=== PATIENT | female | born 1995 | race Two or more races ===

== ENCOUNTER 2018-01-02 16:50 | Emergency (ER) | payer OTHER ==
[2018-01-02 17:23] LABS: BASOPHILS % (AUTO) 0.8 %; EOSINOPHILS # (AUTO) 0.1 10^3/uL (0.0-0.7); HGB - HEMOGLOBIN 14.3 g/dL (12.0-16.0); LYMPHOCYTES # (AUTO) 1.8 10^3/uL (1.5-3.5); LYMPHOCYTES % (AUTO) 32.5 %; MEAN CORPUSCULAR HEMOGLOBIN 32.9 pg (27.0-31.0); MEAN CORPUSCULAR HGB CONC 34.2 g/dL (32.0-36.0); MEAN CORPUSCULAR VOLUME 96.1 fL (81.0-99.0); MEAN PLATELET VOLUME 7.4 fL (7.9-10.8); MONOCYTES # (AUTO) 0.5 10^3/uL (0.0-1.0); MONOCYTES % (AUTO) 9.5 %; NEUTROPHILS % (AUTO) 55.2 %; PLT - PLATELET COUNT 263 10^3/uL (130-450); RED BLOOD COUNT 4.36 10^6/uL (4.20-5.40); RED CELL DISTRIBUTION WIDTH 12.6 % (12.0-15.0); WHITE BLOOD COUNT 5.5 x10^3/uL (4.8-10.8)
[2018-01-02 17:35] LABS: ALBUMIN/GLOBULIN RATIO 1.1 (1.0-2.2); BILIRUBIN,TOTAL 0.5 mg/dL (0.2-1.0); CREATININE 0.6 mg/dL (0.4-1.0); TOTAL PROTEIN 7.5 g/dL (6.7-8.2)
--- NOTE | 2018-01-02 17:42 | ED Physician Documentation ---
PD HPI FEMALE - Stated complaint Stated Complaint: AB CRAMPING/6-8 WKS PREG - Chief complaint Chief Complaint: Abd Pain - History obtained from History obtained from: Patient - History of Present Illness Timing - onset: How many weeks ago (1) Timing - duration: Weeks (1) Timing - details: Gradual onset Pain level max: 3 Pain level max: 2 Associated symptoms: Pelvic pain (cramping), Vaginal bleeding (blood on toilet paper when wiping after urination). No: Fever, Chest/shoulder pain, Abdominal pain, Back pain, Vaginal pain Contributing factors: [employer] History: G (2), P (0), Termination(s) (1) Similar symptoms before: Has not had sx before Recently seen: Not recently seen Review of Systems Constitutional: denies: Fever, Chills Ears: denies: Ear pain Nose: denies: Rhinorrhea / runny nose, Congestion Throat: denies: Sore throat Cardiac: denies: Chest pain / pressure Respiratory: denies: Cough, Wheezing GI: denies: Vomiting, Diarrhea, Hematemesis, Bloody / black stool : denies: Dysuria Skin: denies: Rash Musculoskeletal: denies: Neck pain, Back pain PD PAST MEDICAL HISTORY - Past Surgical History Past Surgical History: No - Present Medications Home Medications: Ambulatory Orders Medication Instructions Recorded Confirmed Pnv No.122/Iron/Folic Acid 01/02/18 [ Multi Tablet] - Allergies Allergies/Adverse Reactions: Allergies Allergy/AdvReac Type Severity Reaction Status Date / Time No Known Drug Allergies Allergy Verified 01/02/18 16:58 - Social History Does the pt smoke?: No Smoking Status: Never smoker Does the pt drink ETOH?: No Does the pt have substance abuse?: No - Immunizations Immunizations are current?: Yes - POLST Patient has POLST: Yes PD ED PE NORMAL - Vitals Vital signs reviewed: Yes - General General: Alert and oriented X 3, No acute distress - HEENT HEENT: Moist mucous membranes - Neck Neck: Supple, no meningeal sign - Cardiac Cardiac: RRR, Strong equal pulses - Respiratory Respiratory: No respiratory distress, Clear bilaterally - Abdomen Abdomen: Soft, Non tender, Non distended - Female Female : Pt declined - Back Back: No CVA TTP, No spinal TTP - Derm Derm: Warm and dry, No rash - Extremities Extremities: No edema, No calf tenderness / cord - Neuro Neuro: Alert and oriented X 3 - Psych Psych: Normal mood, Normal affect Results - Vitals Vitals: Vital Signs - 24 hr 01/02/18 01/02/18 16:54 20:57 Temperature 37.2 C Heart Rate 57 L 72 Respiratory 16 15 Rate Blood Pressure 123/74 127/71 O2 Saturation 100 98 Oxygen O2 Source Room air - Labs Labs: Laboratory Tests 01/02/18 01/02/18 01/02/18 17:10 17:10 17:10 WBC 5.5 RBC 4.36 Hgb 14.3 Hct 41.9 MCV 96.1 MCH 32.9 H MCHC 34.2 RDW 12.6 Plt Count 263 MPV 7.4 L Neut # (Auto) 3.0 Lymph # (Auto) 1.8 G[place]rie # (Auto) 0.5 Eos # (Auto) 0.1 Baso # (Auto) 0.0 Absolute Nucleated RBC 0.00 Nucleated RBC % 0.0 Sodium 134 L Potassium 3.7 Chloride 104 Carbon Dioxide 25 Anion Gap 5.0 L BUN 11 Creatinine 0.6 Estimated GFR (MDRD) 126 Glucose 90 Calcium 9.0 Total Bilirubin 0.5 AST 18 ALT 16 Alkaline Phosphatase 51 Total Protein 7.5 Albumin 4.0 Globulin 3.5 Albumin/Globulin Ratio 1.1 Lipase 23 HCG, Quant Urine Color Urine Clarity Urine pH Ur Specific [place] Urine Protein Urine Glucose (UA) Urine Ketones Urine Occult Blood Urine Nitrite Urine Bilirubin Urine Urobilinogen Ur Leukocyte Esterase Urine RBC Urine WBC Ur Squamous Epith Cells Urine Bacteria Ur Microscopic Review Urine Culture Comments Blood Type O POSITIVE 01/02/18 01/02/18 17:10 20:32 WBC RBC Hgb Hct MCV MCH MCHC RDW Plt Count MPV Neut # (Auto) Lymph # (Auto) [place]rie # (Auto) Eos # (Auto) Baso # (Auto) Absolute Nucleated RBC Nucleated RBC % Sodium Potassium Chloride Carbon Dioxide Anion Gap BUN Creatinine Estimated GFR (MDRD) Glucose Calcium Total Bilirubin AST ALT Alkaline Phosphatase Total Protein Albumin Globulin Albumin/Globulin Ratio Lipase HCG, Quant 1604.00 Urine Color YELLOW Urine Clarity HAZY Urine pH 6.0 Ur Specific [place] <=1.005 Urine Protein NEGATIVE Urine Glucose (UA) NEGATIVE Urine Ketones NEGATIVE Urine Occult Blood SMALL H Urine Nitrite NEGATIVE Urine Bilirubin NEGATIVE Urine Urobilinogen 0.2 (NORMAL) Ur Leukocyte Esterase NEGATIVE Urine RBC 6-10 H Urine WBC 0-3 Ur Squamous Epith Cells FEW Squamous Urine Bacteria Rare Ur Microscopic Review INDICATED Urine Culture Comments NOT INDICATED Blood Type - Rads (name of study) pelvic US Radiology: Prelim report reviewed, EMP read contemporaneously, See rad report ( Single intrauterine gestational sac at EGA 4 weeks 2 days based on mean sac diameter, which is discordant with clinical dates, with no pole, yolk sac , or heart beat noted. No other ultrasound abnormalities. ) PD MEDICAL DECISION MAKING - ED course Complexity details: reviewed results, re-evaluated patient, considered differential, d/w patient ED course: Patient is a 22-year-old female who presents to the emergency department with a threatened miscarriage. Appears to have a single intrauterine gestational sac estimated gestational age of 4 weeks and 2 days based on sac diameter on ultrasound. Discordant with clinical dates, but her hCG is only 1600. We will have her follow-up with her doctor for repeat hCG. Abdomen is soft, nontender nondistended. No evidence of ectopic at this time. Ectopic precautions given at bedside. Patient counseled regarding signs and symptoms for which I believe and urgent re-evaluation would be necessary. Patient with good understanding of and agreement to plan and is comfortable going home at this time This document was made in part using voice recognition software. While efforts are made to proofread this document, sound alike and grammatical errors may occur. - Sepsis Event Vital Signs: Vital Signs - 24 hr 01/02/18 01/02/18 16:54 20:57 Temperature 37.2 C Heart Rate 57 L 72 Respiratory 16 15 Rate Blood Pressure 123/74 127/71 O2 Saturation 100 98 Oxygen O2 Source Room air Departure - Departure Disposition: 01 Home, Self Care Clinical Impression: Threatened in early Condition: Good Instructions: ED Miscarriage Poss Follow-Up: Nicole Youssef PA-C [Primary Care Provider] - Within 3 Days (for repeat HCG) Comments: You need to have a repeat hCG done with Nicole Youssef in 3 days. Your level today is 1600. You have signs of a , but no visible in the uterus yet. This is likely because you are early in . There is no evidence of an ectopic today. Return if you worsen Discharge Date/Time: 01/02/18 20:58
--- NOTE | 2018-01-02 19:50 | Ultrasound Report ---
Procedure Date: 01/02/2018 Accession Number: [id number] / [id number] Procedure: US - OB First Trimester CPT Code: FULL RESULT: EXAM: FIRST TRIMESTER OBSTETRIC ULTRASOUND (Less than 11 weeks) EXAM DATE: 01/02/2018 07:03 PM. CLINICAL HISTORY: Vaginal bleeding. Positive test. LMP: 11/19/2017. COMPARISONS: None. TECHNIQUE: Transabdominal and transvaginal ultrasound examination with static image documentation. CLINICAL DATES: EGA 6 weeks 2 days with PREMA 08/26/2018 based on LMP. ASSESSMENT: Gestational Sac: Single intrauterine. Mean gestational sac diameter: 4.8 mm = 4 weeks 2 days. Embryo: Nonvisualized. Cardiac activity: Nonvisualized. Yolk sac: Nonvisualized. Amniotic fluid: Not accurately assessed at this gestational age. Early placenta: Not visible at this gestational age. Other: No perigestational fluid collection demonstrated. MATERNAL STRUCTURES: Uterus: Anteverted. Unremarkable. Cervix: Closed. Right Ovary/Adnexa: Unremarkable. The ovary measures 2.2 x 1.3 x 1.7 cm, volume 2.5 cc. Left Ovary/Adnexa: Unremarkable. The ovary measures 2.4 x 1.4 x 1.7 cm, volume 2.9 cc. Free Fluid: None. Other: None. IMPRESSION: 1. Single intrauterine gestational sac at EGA 4 weeks 2 days based on mean sac diameter, which is discordant with clinical dates, with no pole, yolk sac, or heart beat noted. 2. No other ultrasound abnormalities. RADIA
[2018-01-02 20:42] LABS: BILIRUBIN,URINE NEGATIVE (NEGATIVE); GLUCOSE, URINE (UA) NEGATIVE (NEGATIVE); KETONES,URINE (UA) NEGATIVE (NEGATIVE); LEUKOCYTE ESTERASE, URINE NEGATIVE (NEGATIVE); NITRITE,URINE NEGATIVE (NEGATIVE); OCCULT BLOOD,URINE SMALL (NEGATIVE); PROTEIN,URINE NEGATIVE (NEGATIVE); UROBILINOGEN,URINE 0.2 (NORMAL) E.U./dL (NORMAL)
[2018-01-02 20:46] LABS: CLARITY,URINE HAZY (CLEAR)
[2018-01-02 20:53] LABS: BACTERIA,URINE Rare /HPF (None Seen); SQUAMOUS EPITHELIAL CELL,UR FEW Squamous (<= Few)
[2018-01-02 20:58] VITALS: BP 127/71
== END 2018-01-02 20:58 | disposition home or self-care (01) ==
LOC: ED 16:50
DX: O20.0 Threatened abortion (principal); Z3A.01 Less than 8 weeks gestation of pregnancy
CPT/HCPCS: 36415; 76801; 76830; 80053; 81001; 81003; 83690; 84702; 85025; 86900; 86901; 87086; 99283

== ENCOUNTER 2020-09-18 22:41 | Outpatient (CLI) | payer OTHER ==
--- NOTE | 2020-09-19 10:25 | Ultrasound Report ---
PROCEDURE: OB First Trimester w/TV INDICATIONS: ABN FINDINGS ON DX IMAGE OUTSIDE/PRIOR DATING DATA: Last menstrual period (LMP): 08/05/2020 LMP-based estimated date of delivery (PREMA): 05/12/2021. First dating scan (date and location): 09/18/2020. Estimated date of delivery (PREMA) from first dating scan: Not applicable. TECHNIQUE: Real-time scanning was performed of the fetus and maternal pelvic organs, with image documentation. Endovaginal scanning was also performed to better visualize the fetus and maternal ovaries. COMPARISON: None FINDINGS: Embryo: Intrauterine gestational sac is present measuring 11 mm, corresponding to 5 weeks 6 days. Th ere is questionable appearance of a joke sac without definitive pole. No heart tones are identi fied. Measurement variability in dating: +/- 4 weeks by LMP, +/- 7 days by mean sac diameter (use before 6 weeks gestation if crown-rump length not able to be measured), +/- 5 days by crown-rump length (6-12 weeks gestation). Maternal organs: Ovaries demonstrate what appears to be a corpus luteal cyst. IMPRESSION: 1. Intrauterine gestational sac with what appears to be irregular yolk sac. No definitive pole or heart tones are identified. Recommend correlation to beta hCG levels and short interval imaging fo llow-up for further evaluation. Reviewed by: Bri Beverly MD on 09/19/2020 10:24 AM PDT Approved by: Bri Beverly MD on 09/19/2020 10:24 AM PDT Station ID: [id number]
== END 2020-09-18 22:42 | disposition home or self-care (01) ==
LOC: DI 22:41
PROVIDERS: ATTEND Obstetrics & Gynecology
DX: R93.89 Abnormal findings on diagnostic imaging of other specified body structures (principal)